=== PATIENT | male | born 1985 | race Caucasian/White ===

== ENCOUNTER 2019-04-22 11:13 | Emergency (ER) | payer BC, OTHER ==
--- NOTE | 2019-04-22 11:39 | EDM.PDOC ---
ED HPI GENERAL MEDICAL PROBLEM - General Chief Complaint: Genitourinary Problem Stated Complaint: TESTICLE PAIN Time Seen by Provider: 04/22/19 11:25 Source of Information: Reports: Patient, RN Notes Reviewed History Limitations: Reports: No Limitations - History of Present Illness INITIAL COMMENTS - FREE TEXT/NARRATIVE: Patient is a 33-year-old male who presents to the ED for the evaluation of left testicular pain. Patient notes that he had a small aching feeling yesterday, but this morning the pain intensified and has been pretty constant. He notes this as if it feels like "someone kicked him in the balls." His is present to the room, and they state that they're in a monogamous relationship. He does not notice any discharge from the penis. He states that when he urinates, there is no obvious stinging, but he that there is some discomfort in his left lower back and the left lower abdomen. He denies any fevers or chills , but states are more like hot flashes, with some nausea associated with this. He denies any vomiting or diarrhea, had a normal bowel movement yesterday. He' s not had any other sort of IBS or chronic bowel issues. He notes he had a vasectomy in July, and he states that the pain is similar to the pain at that time. He notes that there is a mild amount of swelling, and that both testicles appear to be in the scrotum. He did take 2 Tylenol, and 2 Advil at around 9:30 this morning for pain relief, this has not provided much relief. His primary care provider is Dr. Willams. Left Scrotum Pain Score (Numeric/FACES): 6 - Related Data Allergies Allergy/AdvReac Type Severity Reaction Status Date / Time No Known Allergies Allergy Verified 04/22/19 11:22 Home Meds: Home Meds Cholecalciferol (Vitamin D3) [Vitamin D3] 5,000 unit PO DAILY 04/22/19 [History] FLUoxetine [PROzac] 30 mg PO DAILY 04/22/19 [History] Mometasone/Formoterol [Dulera 200 Mcg/5 Mcg Inhaler] 1 puff INH DAILY 04/22/19 [ History] Montelukast [Singulair] 10 mg PO BEDTIME 04/22/19 [History] Multivitamin [Daily Popeye] 1 tab PO DAILY 04/22/19 [History] buPROPion [buPROPion XL] 150 mg PO DAILY 04/22/19 [History] traZODone HCl [Trazodone HCl] 50 mg PO BEDTIME 04/22/19 [History] Past Medical History Psychiatric History: Reports: Anxiety, Depression - Past Surgical History Male Surgical History: Reports: Vasectomy Social & Family History - Tobacco Use Smoking Status *Q: Never Smoker - Caffeine Use Caffeine Use: Reports: Coffee, Soda, Tea - Recreational Drug Use Recreational Drug Use: No ED ROS GENERAL - Review of Systems Review Of Systems: See Below Constitutional: Reports: Other (hot flashes). Denies: Fever, Chills HEENT: Reports: No Symptoms Respiratory: Denies: Shortness of Breath Cardiovascular: Denies: Chest Pain GI/Abdominal: Reports: Abdominal Pain (LLQ discomfort with urination), Nausea. Denies: Black Stool, Bloody Stool, Constipation, Diarrhea, Vomiting : Denies: Discharge, Dysuria, Flank Pain, Frequency, Hematuria, Urgency Musculoskeletal: Reports: Back Pain (left lower back pain) Skin: Reports: No Symptoms Neurological: Reports: No Symptoms Psychiatric: Reports: No Symptoms Hematologic/Lymphatic: Reports: No Symptoms Immunologic: Reports: No Symptoms ED EXAM, RENAL/ - Physical Exam Exam: See Below Exam Limited By: No Limitations General Appearance: Alert, WD/WN, No Apparent Distress Eye Exam: Bilateral Eye: EOMI, Normal Inspection, PERRL Throat/Mouth: Normal Inspection, Normal Lips, Normal Teeth, Normal Gums, Normal Oropharynx, Normal Voice, No Airway Compromise Head: Atraumatic, Normocephalic Respiratory/Chest: No Respiratory Distress, Lungs Clear, Normal Breath Sounds, No Accessory Muscle Use, Chest Non-Tender Cardiovascular: Normal Peripheral Pulses, Regular Rate, Rhythm, No Murmur GI/Abdominal: Normal Bowel Sounds, Soft, No Distention, No Mass, Tender (LLQ) (Male) Exam: No Hernia, Normal Inspection, Normal Prostate, Circumcised, Scrotum Tenderness (L), Testicular Tenderness (L). No: Testicular Mass, Urethral Discharge Rectal (Males) Exam: Normal Exam, Normal Rectal Tone, Prostate Normal. No: Tenderness Back Exam: Normal Inspection, Full Range of Motion Extremities: Normal Inspection, Normal Capillary Refill Neurological: Alert, Oriented, Normal Cognition, No Motor/Sensory Deficits Psychiatric: Normal Affect, Normal Mood Skin Exam: Warm, Dry, Intact, Normal Color, No Rash Course - Orders/Labs/Meds Labs: Laboratory Tests 04/22/19 04/22/19 Range/Units 12:04 12:05 Urine Color Yellow (Yellow) Urine Appearance Clear (Clear) Urine pH 7.0 (5.0-8.0) Ur Specific [place] > or = 1.030 (1.005-1.030) Urine Protein 1+ H (Negative) Urine Glucose (UA) Negative (Negative) Urine Ketones Negative (Negative) Urine Occult Blood Negative (Negative) Urine Nitrite Negative (Negative) Urine Bilirubin Negative (Negative) Urine Urobilinogen 0.2 (0.2-1.0) Ur Leukocyte Esterase Negative (Negative) Urine RBC 0-5 (0-5) /hpf Urine WBC 0-5 (0-5) /hpf Ur Epithelial Cells Not seen (0-5) /hpf Urine Bacteria Few (FEW) /hpf Urine Mucus Few (FEW) /hpf C trachomatis DNA (PCR) Not detected N gonorrhoeae DNA (PCR) Not detected Meds: Medications Discontinued Medications Generic Name Dose Route Start Last Admin Trade Name Freq PRN Reason Stop Dose Admin Hydromorphone HCl 0.5 mg 04/22/19 11:41 04/22/19 11:49 Dilaudid IM 04/22/19 11:42 0.5 mg ONETIME ONE Administration - Re-Assessments/Exams Free Text/Narrative Re-Assessment/Exam: 04/22/19 11:40 Patient presents to the ED for evaluation of left testicular pain. Did order an ultrasound, UA, the gonorrhea chlamydia screen. Will order 0.5 mg Dilaudid for initial pain management. 04/22/19 13:27 Patient's ultrasound is done, and demonstrates testicles that have a homogenous ultrasound appearance. Normal arterial and venous blood flow seen within the testicles. No hydrocele is seen. No abnormal Doppler flow seen within the epididymitis to indicate epididymitis. There is a small amount of fat seen within the left inguinal region with mildly dilated blood vessel. Findings are felt compatible a small fat-containing inguinal hernia containing a dilated gonadal vein. Urinalysis is clean at this time, on reassessment he is still pending, however I find this more likely to be negative. I will discharge the patient home at this time with general recommendations and have him follow up with surgery for further possible management of this inguinal hernia. 04/22/19 15:29 Labs were checked again, the patient was negative for gonorrhea and chlamydia. Departure - Departure Time of Disposition: 13:29 Disposition: Home, Self-Care 01 Condition: Fair Clinical Impression: Inguinal hernia of left side without obstruction or gangrene - Discharge Information *PRESCRIPTION DRUG MONITORING PROGRAM REVIEWED*: No *COPY OF PRESCRIPTION DRUG MONITORING REPORT IN PATIENT TRINH: No Instructions: Inguinal Hernia, Adult, [id number] Referrals: Matt Luis MD [Primary Care Provider] - Forms: ED Department Discharge Additional Instructions: You were evaluated in the ED today for your left testicular pain. Your urinalysis did not demonstrate any sort of bacterial infection at this time , your ultrasound demonstrated that you have a small amount of herniated fat into the left inguinal region which is consistent with an inguinal hernia at this time. Recommend that you follow up with general surgery, for further management of this, Dr. Gordy Martinez, out of our [facility] clinic ([phone]) should be able to provide you with the services. You may use 500 mg Tylenol or 600 mg ibuprofen every 6 hours as needed for further pain relief. A copy of your ultrasound results were given to you, so that you may follow up with a general surgeon. Please return to the ED at any time if your symptoms change or worsen.
[2019-04-22] MEDS ORDERED: HYDROmorphone 0.5 MG/0.5 ML Syringe IM ONE (11:41)
--- NOTE | 2019-04-22 12:52 | US ---
Testicular ultrasound: Multiple real-time images of the testicles were obtained. Comparison: No prior testicular imaging is available. Findings: Small amount of fat is seen within the left inguinal region with mildly dilated blood vessel. Findings are felt compatible with small fat-containing inguinal hernia containing a dilated gonadal vein. Testicles have a homogeneous ultrasound appearance. Normal arterial and venous blood flow are seen within the testicles. No hydrocele is seen. No abnormal Doppler flow seen within the epididymis to indicate epididymitis. Measurements: Right testicle: 3.9 x 2.8 x 2.1 cm Left wrist: 3.7 x 2.6 x 2.2 cm. Impression: 1. Small amount of herniated fat into the left inguinal region containing a slightly dilated gonadal vein. 2. No additional abnormality is appreciated on testicular ultrasound study. Diagnostic code #3
[2019-04-22 13:56] LABS: C. TRACHOMATIS BY PCR NOT DETECTED; N. GONORRHOEAE BY PCR NOT DETECTED
== END 2019-04-22 13:43 | disposition home or self-care (01) ==
LOC: JD.ED 11:13
DX: K40.90 Unilateral inguinal hernia, without obstruction or gangrene, not specified as recurrent (principal); F32.9 Major depressive disorder, single episode, unspecified; F41.9 Anxiety disorder, unspecified; Z79.899 Other long term (current) drug therapy
CPT/HCPCS: 76870; 81001; 87491; 87591; 93975; 96372; 99284; J1170

== ENCOUNTER 2019-04-27 09:06 | Day surgery (SDC) | payer BC ==
[~2019-04-27 09:06] MED LIST: Lidocaine 1% 4 ML ONE; Lidocaine 1%/Sod Bicarbonate in NS 8.4% 1 ML Syringe IDERM PRN; Midazolam 1 MG/ML 2 ML SDV ONE; Ondansetron 4 MG/2 ML SDV ONE; Propofol 200 MG/20 ML SDV ONE; Rocuronium 50 MG/5 ML Vial ONE; Sodium Chloride 0.9% 10 ML Syringe FLUSH PRN; fentaNYL 250 MCG/5 ML SDV ONE
[2019-04-27] MEDS: Lactated Ringers 1,000 ML IV SCH ×2 (09:40→15:52)
--- NOTE | 2019-04-27 09:40 | PCM.PREANE ---
Preanesthetic Assessment - Procedure Proposed Procedure: Lap Left Inguinal hernia repair - Anesthesia/Transfusion/Family Hx Anesthesia History: Prior Anesthesia Reaction (nausea) Family History of Anesthesia Reaction: No Transfusion History: No Prior Transfusion(s) - Review of Systems General: No Symptoms Pulmonary: No Symptoms Cardiovascular: No Symptoms Gastrointestinal: No Symptoms Neurological: No Symptoms Other: Reports: Anxiety - Physical Assessment NPO Status Date: 04/26/19 NPO Status Time: 00:00 Height: 1.75 m Weight: 87.543 kg ASA Class: 2 Mental Status: Alert & Oriented x3 Dentition: Reports: Normal Dentition Thyro-Mental Finger Breadths: 3 Mouth Opening Finger Breadths: 2 ROM/Head Extension: Full (stiff neck this am) Lungs: Clear to Auscultation, Normal Respiratory Effort Cardiovascular: Regular Rate, Regular Rhythm - Allergies Allergies/Adverse Reactions: Allergies Allergy/AdvReac Type Severity Reaction Status Date / Time No Known Allergies Allergy Verified 04/26/19 14:33 - Blood Blood Available: No Product(s) Available: None - Anesthesia Plan Pre-Op Medication Ordered: None - Acknowledgements Anesthesia Type Planned: General Anesthesia Pt an Appropriate Candidate for the Planned Anesthesia: Yes Alternatives and Risks of Anesthesia Discussed w Pt/Guardian: Yes Pt/Guardian Understands and Agrees with Anesthesia Plan: Yes PreAnesthesia Questionnaire HEENT History: Reports: Impaired Vision Cardiovascular History: Reports: None Respiratory History: Reports: Asthma Gastrointestinal History: Reports: Other (See Below) Other Gastrointestinal History: Left inguinal hernia Genitourinary History: Reports: None Musculoskeletal History: Reports: None Neurological History: Reports: Migraines Psychiatric History: Reports: Anxiety, Depression Endocrine/Metabolic History: Reports: None Hematologic History: Reports: None Immunologic History: Reports: None Oncologic (Cancer) History: Reports: None Dermatologic History: Reports: None - Past Surgical History Head Surgeries/Procedures: Reports: None HEENT Surgical History: Reports: None Cardiovascular Surgical History: Reports: None Respiratory Surgical History: Reports: None GI Surgical History: Reports: None Male Surgical History: Reports: Vasectomy Endocrine Surgical History: Reports: None Neurological Surgical History: Reports: None Musculoskeletal Surgical History: Reports: None Oncologic Surgical History: Reports: None Dermatological Surgical History: Reports: None - SUBSTANCE USE Smoking Status *Q: Never Smoker Tobacco Use Within Last Twelve Months: No Second Hand Smoke Exposure: No Days Per Week of Alcohol Use: 1 Number of Drinks Per Day: 2 Total Drinks Per Week: 2 Recreational Drug Use History: No - HOME MEDS Home Medications: Home Meds Montelukast [Singulair] 10 mg PO BEDTIME 04/22/19 [History] buPROPion [buPROPion XL] 300 mg PO DAILY 04/22/19 [History] traZODone HCl [Trazodone HCl] 50 mg PO BEDTIME 04/22/19 [History] Albuterol [Ventolin HFA] 1 - 2 puff INH Q4HR PRN 04/26/19 [History] FLUoxetine HCl [Fluoxetine HCl] 40 mg PO BEDTIME 04/26/19 [History] Mometasone/Formoterol [Dulera 100 Mcg/5 Mcg Inhaler] 1 puff IH DAILY 04/26/19 [ History] - CURRENT (IN HOUSE) MEDS Current Meds: Current Medications Lactated Ringer's (Ringers, Lactated) 1,000 mls @ 125 mls/hr IV ASDIRECTED CINDY Stop: 04/27/19 23:00 Lidocaine/Sodium Bicarbonate (Buffered Lidocaine 1% In Ns 8.4%) 0.25 ml IDERM ONETIME PRN PRN Reason: Prior to IV Start Stop: 04/27/19 18:00 Sodium Chloride (Saline Flush) 10 ml FLUSH ASDIRECTED PRN PRN Reason: Keep Vein Open Stop: 04/27/19 18:00 Discontinued Medications Fentanyl (Sublimaze) Confirm Administered Dose 250 mcg .ROUTE .STK-MED ONE Stop: 04/27/19 09:02 Lidocaine HCl (Xylocaine-Mpf 1%) Confirm Administered Dose 4 mls @ as directed .ROUTE .STK-MED ONE Stop: 04/27/19 09:01 Midazolam HCl (Versed 1 Mg/Ml) Confirm Administered Dose 2 mg .ROUTE .STK-MED ONE Stop: 04/27/19 09:02 Ondansetron HCl (Zofran) Confirm Administered Dose 4 mg .ROUTE .STK-MED ONE Stop: 04/27/19 09:01 Propofol (Diprivan 20 Ml) Confirm Administered Dose 200 mg .ROUTE .STK-MED ONE Stop: 04/27/19 09:02 Rocuronium [place] (Zemuron) Confirm Administered Dose 50 mg .ROUTE .STK-MED ONE Stop: 04/27/19 09:01
[2019-04-27] MEDS ORDERED: Scopolamine 1.5 MG Transdermal Patch TRDERM SCH (09:45)
[2019-04-27] MEDS ORDERED: Bupivacaine 0.5%/EPINEPHrine 1:200,000 50 ML MDV ONE (10:48)
[2019-04-27] MEDS ORDERED: diphenhydrAMINE 50 MG/ML SDV ONE (11:16)
[2019-04-27] MEDS ORDERED: ceFAZolin 1 GM Vial ONE (11:19)
[2019-04-27] MEDS ORDERED: Ketamine 500 mg/10 ML MDV ONE (11:22)
[2019-04-27] MEDS ORDERED: Ondansetron 4 MG/2 ML SDV IVPUSH PRN (11:27)
[2019-04-27] MEDS ORDERED: fentaNYL 100 MCG/2 ML SDV IVPUSH PRN (11:27)
[2019-04-27] MEDS ORDERED: HYDROmorphone 0.5 MG/0.5 ML Syringe IVPUSH PRN (11:27)
[2019-04-27] MEDS ORDERED: HYDROmorphone 0.5 MG/0.5 ML Syringe ONE (11:29)
[2019-04-27] MEDS ORDERED: Rocuronium 50 MG/5 ML Vial ONE (11:35)
[2019-04-27] MEDS ORDERED: Lactated Ringers 1,000 ML ONE (11:47)
[2019-04-27] MEDS ORDERED: Neostigmine Methylsulfate 1 MG/ML 5 ML Syringe ONE (12:15)
[2019-04-27] MEDS ORDERED: Dexamethasone 4 MG/ML 5 ML MDV ONE (12:21)
[2019-04-27] MEDS ORDERED: Ketorolac 30 MG/ML SDV ONE (12:38)
--- NOTE | 2019-04-27 12:52 | PCM.POSTAN ---
POST ANESTHESIA ASSESSMENT - MENTAL STATUS Mental Status: Alert, Oriented - VITAL SIGNS Vital Signs: Last Vital Signs Temp 99.0 F 04/27/19 09:25 Pulse 98 04/27/19 09:25 Resp 16 04/27/19 09:25 BP 136/97 H 04/27/19 09:50 Pulse Ox 93 L 04/27/19 09:25 1245 93 21 98.6 147/91 95% - RESPIRATORY Respiratory Status: Respiratory Rate WNL, Airway Patent, O2 Saturation Stable, Supplemental Oxygen - CARDIOVASCULAR CV Status: Pulse Rate WNL, Blood Pressure Stable - GASTROINTESTINAL GI Status: No Symptoms - PAIN Pain Score: 0 - POST OP HYDRATION Hydration Status: Adequate & Stable
--- NOTE | 2019-04-27 13:28 | PCM.PRNOTE ---
- Free Text/Narrative Note: Date: 04/27/2019 Surgeon: Gordy Martinez MD Diagnosis: Left inguinal hernia Operation: laparoscopic left inguinal hernia repair Complications: none EBL: minimal Specimens: none Abx: 2 g ancef IV Findings:No direct hernia appreciated. There was essentially not much of a hernia at the left internal ring, but there did appear to be a slight area of outpouching with abdominal insufflation. The operation was completed; there was a small cord lipoma which was removed. No right inguinal hernia noted Detailed report: The patient was placed supine with arms tucked. General endotracheal anesthesia was administered and time out performed. The abdomen was prepped and draped in sterile fashion. A veress needle was inserted at Calhoun's point and the abdominal cavity insufflated to 15 mm Hg. A 12 bladed trocar was then inserted just inferior to the umbilicus. A 5 mm 30 degree laparoscope was inserted and abdominal contents inspected. The Veress site appeared fine and the needle was removed. Additional [address] along the line 2 cm superior to the umbilicus, each 7 mm lateral to the midline. The patient was placed in Trendelenberg and the inguinal regions were visualized. There did not appear to be any significant hernia on either side, though there was a slight outpouching at the level of the internal ring. Laparoscopic scissors were used to incise the peritoneum from the left medial umbilical ligament out toward the left ASIS. Blunt dissection with graspers and the scissors was then carried out in the preperitoneal plane inferiorly, taking care to keep the fatty tissue up with the abdominal wall. The pubic symphysis was reached, and a few centimeters of dissection inferiorly and posteriorly into the space of Retzius was carried out. The dissection plane was carefully developed out laterally. The spermatic cord was seen exiting the interior ring. epigastric vessels were identified and preserved, and dissection was carried out around the femoral vessels. With adequate dissection of the peritoneal flap inferiorly, a 12 x 14 cm polypropylene mesh was cut to contour and inserted into the abdomen. The mesh was unfolded and placed over the myopectineal orifice with good overlap at Adarsh's ligament medially and inferiorly. The SecureStrap was used to secure the mesh at the rectus fascial insertion at the pubic ramus. The mesh lay nicely , flat and in good position. A few more medial tacks were placed to secure the mesh, and the peritoneal flap was then closed with Securestrap as well. There did not appear to be any mesh exposure to the viscera. The large port was removed and site closed at the level of fascia with 0 vicryl using the PMI laparoscopic suture passer. Insufflation was released, and all sites were closed at the skin with vicryl and dressed with Dermabond. The patient tolerated the procedure well and was transferred to PACU following extubation in the OR. Gordy Martinez MD General Surgery
[2019-04-27] MEDS ORDERED: oxyCODONE 5 MG Tab PO PRN (14:40)
[2019-04-27] MEDS ORDERED: Albuterol 0.083% 2.5 MG/3 ML Neb Soln NEB ONE (14:48)
--- NOTE | 2019-04-27 15:34 | PCM48HPAN ---
Post Anesthesia Note - EVALUATION WITHIN 48HRS OF ANESTHETIC Vital Signs in Normal Range: Yes Patient Participated in Evaluation: Yes Respiratory Function Stable: Yes Airway Patent: Yes Cardiovascular Function Stable: Yes Hydration Status Stable: Yes Pain Control Satisfactory: Yes (on PO meds) Nausea and Vomiting Control Satisfactory: Yes Mental Status Recovered: Yes Vital Signs: Last Vital Signs Temp 37.4 C 04/27/19 14:02 Pulse 91 04/27/19 14:02 Resp 16 04/27/19 14:02 BP 134/86 04/27/19 14:02 Pulse Ox 94 L 04/27/19 14:56 - COMMENTS/OBSERVATIONS Free Text/Narrative:: no anesthesia complications noted
== END 2019-04-27 18:00 | disposition home or self-care (01) ==
LOC: JD.SDS 09:06 → JD.MS 18:25
PROVIDERS: ATTEND Surgery
DX: K40.90 Unilateral inguinal hernia, without obstruction or gangrene, not specified as recurrent (principal); J45.909 Unspecified asthma, uncomplicated; F41.9 Anxiety disorder, unspecified; F32.9 Major depressive disorder, single episode, unspecified; Z79.899 Other long term (current) drug therapy
CPT/HCPCS: 94640; A9270-GY; C1781; J0690; J1100; J1170; J1200; J1885; J2001; J2250; J2405; J2704; J2710; J3010; J3490; J7120